=== PATIENT | male | born 1995 | race Two or more races ===

== ENCOUNTER 2024-05-02 12:49 | Day surgery (SDC) | payer OTHER, SELFPAY ==
[2024-05-02] VITALS (10 sets, daily range): BP systolic 117–151; BP diastolic 70–93; PULSE 68–107; RESP 16–20; TEMP 36.6–37.4; O2SAT 96–100; BMI 27.3; BMI 28.3
--- NOTE | 2024-05-02 13:01 | XR_ITS ---
Examination: CT abdomen with intravenous contrast CT pelvis with intravenous contrast 2-D coronal reconstructions 2-D sagittal reconstructions Date and time of exam:April 02, 2024 1603 hours INDICATIONS: Onset right lower abdominal pain beginning this morning. CTDI: vol (mGy) 8.73 DLP: (mGycm) 572 Technique: Multiple axial sections of the abdomen and pelvis have been obtained. 64 slice high-resolution scanner used. 3 mm axial sections have been obtained, post intravenous injection 60 cc Isovue-370 2-D sagittal, coronal reconstructions obtained. Low dose protocols were performed. One or more of the following dose reduction techniques were used; automated exposure control, adjustment of the mA and/or KV according to patient size, use of iterative reconstruction technique. Findings: No focal liver or splenic lesions No gallstones No pancreatic or adrenal mass No renal or ureteral calculi, no hydronephrosis Aorta is normal in size and configuration Fluid-filled enlarged inflamed appendix below the cecum, axial images 152 through 161, coronal images 86 through 74 No pelvic abscess or localized perforation Bladder intact IMPRESSION: Acute appendicitis, no perforation or abscess noted
--- NOTE | 2024-05-02 13:23 | PD.EDABDPN ---
ED Abdominal Pain RME/HPI General Chief Complaint: Abdominal Pain Stated complaint: ABD PAIN/NAUSEA TODAY, CONSTIPATION x 1 WEEK Time seen by provider: 05/02/24 12:55 Arrival date/time: 05/02/24 12:49 Limitations: no limitations RME / HPI RME / HPI narrative: This section includes all my notes and documentations, including HPI, PE, MDM, Procedure Notes, and PLAN. Ankit Albarran MD HPI: 29 year old male with no stated medical history presents to the ED for complaint of sharp right lower quadrant pain beginning ~ 2 hours [employer]. Rating as severe. Accompanied by nausea. Patient additionally reports constipation x 1 week and passing only very little amount of gas throughout the day. Denies any history of similar pain. Denies fevers, chills, sweats, cough, shortness of breath, vomiting, or urinary symptoms. No known modifying/aggravating factors reported. No breakfast or lunch today. No other complaints. ROS: Gastrointestinal: negative except as documented in HPI. Genitourinary: negative except as documented in HPI. Musculoskeletal: negative except as documented in HPI. Skin: negative except as documented in HPI. Neurological: negative except as documented in HPI. Physical Exam: General: Alert and oriented. Appears to be in pain. Eyes: Conjunctivae and lids clear. ENT: No nasal congestion. Neck: Supple. Heart: RRR. Lungs: No respiratory distress. Good air movement. No rhonchi, wheezing, rales. Abdomen: Soft, RLQ tenderness. Decreased bowel sounds. No distension. No rebound or guarding. Skin: Warm and dry. Neuro: Alert and oriented X 3. I reviewed all diagnostic test results. My review of the abdominal CT report is appendicitis. Blood tests remarkable for WBC 14.9. At this point, diagnoses include appendicitis. Treatment here included Zofran and Toradol and Zosyn. Patient felt better. I discussed the case with our surgeon on-call, Dr. Coffman. About the presentation and exam and diagnostics and treatments here. And need of further care in the hospital. Will see the patient. Ankit Albarran MD Related Data Allergies Allergy/AdvReac Type Severity Reaction Status Date / Time No Known Allergies Allergy Verified 05/02/24 12:52 Review of Systems Review of Systems Systems Reviewed: All systems reviewed, normal except as documented Past Medical History Past Medical History CARDIAC: Negative Cardiac Disorders RESPIRATORY: Negative Asthma GENITOURINARY: Negative Renal Disease ENDOCRINE: Negative Diabetes Mellitus Type 2 HEMATOLOGIC: Negative Sickle Cell Disease Social History SMOKING STATUS: Never smoker ED Exam Narrative Physical exam: As noted in HPI General Limitations: Present no limitations Course Quality Measures none Orders Category Date Time Status CT Screening NOW Care 05/02/24 13:01 Active Consult to General Surgery Stat Cons 05/02/24 16:[address] abdomen pelvis w con Stat Exams 05/02/24 13:01 Completed Amylase Stat Lab 05/02/24 13:15 Completed CBC Stat Lab 05/02/24 13:15 Completed CMP [Comprehensive Metabolic Panel] Stat Lab 05/02/24 13:15 Completed Lipase Stat Lab 05/02/24 13:15 Completed Magnesium Stat Lab 05/02/24 13:15 Completed UA [Urinalysis] Stat Lab 05/02/24 13:01 Ordered Ketorolac Inj [Toradol Inj] Med 05/02/24 13:00 Discontinued 30 mg IVP X1 ONE Ondansetron Inj [Zofran Inj] Med 05/02/24 13:00 Discontinued 4 mg IV X1 ONE Piper/Tazo Inj [Zosyn Inj] 3.375 gm Med 05/02/24 16:42 Discontinued Sodium Chloride 0.9% (P) [Ns 0.9% (P)] 50 ml IV X1 Vital Signs Vital signs: Vital Signs Temperature 99.4 F 05/02/24 13:00 Pulse Rate 107 H 05/02/24 13:00 Respiratory Rate 18 05/02/24 13:00 Blood Pressure 127/84 05/02/24 13:00 Pulse Oximetry (%) 98 05/02/24 13:00 Oxygen Delivery Method Room Air 05/02/24 13:00 Pulse ox is 98% on room air which is adequate. Abdominal Pain MDM MDM Narrative MDM Narrative:: Argelia Wan am scribing for and in the presence of Dr. Albarran. Patient data External records reviewed:: [facility] previous records (I reviewed ED visit on 03/18/2024) Clinical information provided by:: patient Social determinants that could affect healthcare access:: none Patient has the following chronic illnesses:: None How is presenting disease/condition affected by chronic disease/condition?: no chronic disease Evaluation data The following diagnostics were reviewed and interpreted by me:: lab results and radiology exam(s) Lab and/or radiology exams considered but not ordered:: None Interpretation Summary: Ordering Physician: Ankit Albarran MD Date of Service: 05/02/24 Procedure(s): CT abdomen pelvis w con Accession Number(s): [id number] cc: Ankit Albarran MD; Orlin Mares MD; Dell Fitzgerald MD~ Examination: CT abdomen with intravenous contrast CT pelvis with intravenous contrast 2-D coronal reconstructions 2-D sagittal reconstructions Date and time of exam:April 02, 2024 1603 hours INDICATIONS: Onset right lower abdominal pain beginning this morning. CTDI: vol (mGy) 8.73 DLP: (mGycm) 572 Technique: Multiple axial sections of the abdomen and pelvis have been obtained. 64 slice high-resolution scanner used. 3 mm axial sections have been obtained, post intravenous injection 60 cc Isovue-370 2-D sagittal, coronal reconstructions obtained. Low dose protocols were performed. One or more of the following dose reduction techniques were used; automated exposure control, adjustment of the mA and/or KV according to patient size, use of iterative reconstruction technique. Findings: No focal liver or splenic lesions No gallstones No pancreatic or adrenal mass No renal or ureteral calculi, no hydronephrosis Aorta is normal in size and configuration Fluid-filled enlarged inflamed appendix below the cecum, axial images 152 through 161, coronal images 86 through 74 No pelvic abscess or localized perforation Bladder intact IMPRESSION: Acute appendicitis, no perforation or abscess noted Dictated By: Orlin Mares MD Signed By: <Electronically signed by Orlin Mares MD in OV> 05/02/24 1639 Medications / Prescriptions Medications or Prescriptions considered but not ordered:: None Medication administrations:: Medication Administration History Discontinued Medications Piperacillin Sod/Tazobactam (Sod 3.375 gm/ Sodium Chloride) 50 mls @ 100 mls/hr IV X1 ONE Stop: 05/02/24 17:11 Last Admin: 05/02/24 16:55 Dose: 100 mls/hr Documented By: Ketorolac Tromethamine (Ketorolac Inj 30 Mg/Ml Vial) 30 mg IVP X1 ONE Stop: 05/02/24 13:01 Last Admin: 05/02/24 13:46 Dose: 30 mg Documented By: Ondansetron HCl (Ondansetron Inj 2 Mg/Ml Inj 2 Ml) 4 mg IV X1 ONE; Protocol Stop: 05/02/24 13:01 Last Admin: 05/02/24 13:47 Dose: 4 mg Documented By: Mckennavania and Toradol and Zosyn Consultations Consultation(s) initiated? (list below): Yes Consultation #1 (Physician, Specialty, Details): I spoke with surgeon Dr. Coffman. Discussed patients PMHx, HPI, ED course, exam findings, labs, and radiology results. Will see the patient. Time: 16:44 Diagnosis Differential diagnosis abdominal pain: abdominal pain, acute appendicitis, calculus of kidney, constipation, diverticulitis, gastroenteritis and small bowel obstruction Most likely diagnosis given after review of the tests above:: Appendicitis Admission Indicated Admission indicated?: indicated Explain why admission is indicated or not indicated:: Appendicitis Admission Request Was there a request for admission?: Yes Admission Attestation Admission request attestation: Discussed case with [] from Hospitalist service regarding admission. Discussed patients ED course, exam findings, labs, and radiology results. The Hospitalist [agrees,declines] to accept the patient for admission. Disposition Plan Disposition Plan: Admit Discharge Plan Prescriptions/Referrals Referrals: Dell Fitzgerald MD [Primary Care Provider] - In 1 week Problem List Clinical Impression: Abdominal pain Patient/Caregiver Discharge Instructions Print Language: Polish
[2024-05-02 13:24] LABS: Basophils % (Auto) 0 % (0-2.5); Eosinophils % (Auto) 0 % (0-10); Hematocrit 42.8 % (41.0-53.0); Immature Granulocytes % (Auto) 0 % (0-0); Immature Granulocytes Auto 0.06 Thou/mm3 (0.00-0.00); Lymphocytes % (Auto) 7 % (10-50); Mean Corpuscular Hemoglobin 30.5 pg (25.0-35.0); Mean Corpuscular Volume 87 fL (80-100); Monocytes # (Auto) 0.5 Thou/mm3 (0.0-0.8); Monocytes % (Auto) 3 % (0-12); Neutrophils # (Auto) 13.3 Thou/mm3 (1.8-7.7); Neutrophils % (Auto) 90 % (37-80); Nucleated Red Blood Cell % 0 /100 WBC (0); Platelet Count 143 Thou/mm3 (140-440); RDW Standard Deviation 40.8 fL (35.1-43.9); Red Blood Count 4.91 Miln/mm3 (4.50-5.90); White Blood Count 14.9 Thou/mm3 (3.8-10.6)
[2024-05-02] MEDS: KETOROLAC INJ 30 MG/ML VIAL IVP (13:46)
[2024-05-02] MEDS: ONDANSETRON INJ 2 MG/ML INJ 2 ML 4 MG IV (13:47)
[2024-05-02 13:51] LABS: Alanine Aminotransferase 28 U/L (10-49); Albumin, Serum 4.6 gm/dL (3.5-5.0); Albumin/Globulin Ratio 1.5 (1.2-2.2); Alkaline Phosphatase 57 U/L (46-116); Amylase 62 U/L (30-118); Anion Gap 10 (7-16); BUN/Creatinine Ratio 11 Ratio (12-20); Bilirubin,Total 0.7 mg/dL (0.3-1.2); Blood Urea Nitrogen 9 mg/dL (9-23); Calcium 9.4 mg/dL (8.3-10.6); Calcium (Corrected) 9.4 mg/dL (8.5-10.1); Carbon Dioxide 23.9 mMol/L (20.0-31.0); Chloride 103 mMol/L (98-107); Creatinine (Component) 0.8 mg/dL (0.6-1.3); Estimated Creatinine Clearance 130.6 mL/min (>60); Glucose 107 mg/dL (74-106); Lipase 51 U/L (12-53); Magnesium 1.7 mg/dL (1.6-2.6); Osmolality,Calculated 272 (275-295); Potassium 3.8 mMol/L (3.4-5.1); Sodium 137 mMol/L (136-145); Total Protein 7.6 gm/dL (5.7-8.2); eGFR > 60 See Note
[2024-05-02 14:11] LABS: Aspartate Amino Transferase 12 U/L (0-34)
[2024-05-02] MEDS: PIPER/TAZO INJ 3.375 GM in SODIUM CHLORIDE 0.9% (P) 50 ML IV (16:55)
--- NOTE | 2024-05-02 20:52 | PC.NURSE ---
Pt in [facility] was here to see pt. Conscent signed. Pt undressed for surg. Report given to ANIMAL GROOMER. pt leaving now for OR.
--- NOTE | 2024-05-02 20:52 | PD.SURHP ---
[facility] Date of Admission 05/02/2024 Chief Complaint Chief Complaint: Right lower quadrant abdominal pain with nausea and vomiting HPI 29-year-old male without significant past medical history presented to the emergency department with acute onset of abdominal pain. His pain started earlier today in the epigastric area. The pain was initially intermittent. His pain then became persistent, progressively worse and localized over right lower quadrant. He has had nausea and vomiting, but denies fever, chills, diarrhea or dysuria. He denies having similar symptoms in the past with no recent history of trauma. Review of Systems Constitutional Constitutional: Denies chills and Denies fever(s) Cardiovascular Cardiovascular: Denies chest pain Respiratory Respiratory: Reports cough Gastrointestinal Gastrointestinal: Reports abdominal pain, Reports nausea and Reports vomiting Genitourinary Genitourinary: Denies difficulty urinating Hematologic/Lymphatic Hematologic/Lymphatic: Denies easy bleeding and Denies easy bruising Past Medical History Surgical History OTHER SURGICAL HX: No surgeries in the past Social History SMOKING STATUS: Never smoker SUBSTANCE USE: does not use ALCOHOL: Never Meds Home Medications and Allergies Allergies Allergy/AdvReac Type Severity Reaction Status Date / Time No Known Allergies Allergy Verified 05/02/24 12:52 Exam Vital Signs Temp Pulse Resp BP Pulse Ox O2 Del Method 98.8 F 86 18 117/70 99 Room Air 05/02/24 19:13 05/02/24 19:13 05/02/24 19:13 05/02/24 19:13 05/02/24 19:13 05/02/24 19:13 Constitutional Constitutional: no acute distress Routine Respiratory Exam Respiratory: Present CTA bilaterally Routine Cardiovascular Exam Cardiovascular: Present RRR Routine Abdominal Exam Abdominal: Present soft, normoactive bowel sounds and tenderness (Right lower quadrant tenderness to palpation with guarding, no rebound tenderness or peritonitis at this time); Absent distended Results Results: Laboratory Laboratory results: results reviewed Results: Imaging CT scan - abdomen: report reviewed and image reviewed CT scan - pelvis: report reviewed and image reviewed Assessment & Plan Problem List (1) Acute appendicitis: Qualifiers: Acute appendicitis type: unspecified acute appendicitis type Qualified Code(s): K35.80 - Unspecified acute appendicitis Status: Acute Plan Keep n.p.o. with IV fluids and IV antibiotics and plan for laparoscopic possible open appendectomy. Risks include but not limited to infection, bleeding, injury to bowel, bladder, surround neurovascular structures, abdominal sepsis and or abdominal abscess, need for further procedure and or operation discussed with the patient. Benefits and alternatives explained to him, all his questions answered, he agreed and consented to proceed with the operation. Quality Measures Quality Measures none
--- NOTE | 2024-05-02 20:56 | ESOP_ITS ---
Date of Procedure 05/02/24 Pre Op Diagnosis Acute appendicitis Post Op Diagnosis Acute appendicitis Procedure Laparoscopic appendectomy Findings Inflamed and hyperemic appendix without perforation Procedure Description Patient was brought into the operating room in supine position. After administration of general endotracheal anesthesia, abdomen was prepped and draped in standard surgical manner. A Veress needle was inserted through the umbilicus and pneumoperitoneum was obtained up to 15 mmHg. The Veress needle was removed and a 5 mm umbilical incision was made. A 5 mm trocar was placed and laparoscopic camera was inserted. Under direct visualization a laparoscopic camera a 5 mm trocar placed in suprapubic region and a 10 mm trocar placed in left lower quadrant. The abdomen was inspected, the cecum was identified and followed until the appendix was identified. The appendix was noted to be inflamed and hyperemic without perforation. A window was created between the appendix and mesoappendix and the appendix was divided near the appendix and cecal junction with blue Endo DEYSI stapling device. The mesoappendix was divided with alberto Endo DEYSI stapling device. The appendix was placed inside an Endo Catch and removed from the abdomen utilizing left lower quadrant trocar site. Abdomen and pelvis copiously and thoroughly washed and irrigated, all the fluids were suctioned and the suctioned fluid returned clear. Hemostasis was adequate and satisfactory, staple lines were intact without bleeding or any leakage. Lef t lower quadrant trocar sites fascial defect was closed with 0 Vicryl using Endo closure device. Instruments and trocars removed, pneumoperitoneum was evacuated and the incisions closed with 4-0 Monocryl subcuticular fashion. Instruments, needles and sponge counts were reported to be correct ??2. Patient tolerated the procedure well, was extubated, breathing spontaneously and without difficulty and was transferred to postanesthesia care in stable condition. Anesthesia GETA and local Pathology / specimen Other (Appendix) Estimated Blood Loss 5 Condition Stable Disposition PACU Surgeon Keri Coffman MD Surgical Staff Operation Date: 05/02/24 21:00 <No data on this case meets the specified criteria>
--- NOTE | 2024-05-02 22:15 | SUR.PHASEI ---
2143: pt arrived to PACU via gurney drowsy but arouses to verbal commands, breathing unlabored, dressing to abdomen with dermabond x 3 ports clean, dry, and intact, report from Jackson GAMA and Jairo ENTERTAINMENT PRODUCTION PROFESSIONAL 2199: pt tolerating oral fluids without difficulty swallowing or n/v 2214: pt awake, alert, able to follow commands, breathing unlabored, dressing to abdomen with dermabond x 3 ports clean, dry, and intact, mother at bedside, report called to Kareen GAMA, pt transferred to room at this time.
[2024-05-02] MEDS: KCL 20 mEq/L in D5-1/2NS 20 MEQ/1,000 ML BAG 100 MEQ IV (22:49)
[2024-05-02] MEDS: DOCUSATE SOD 100 MG CAPSULE PO (22:49)
[2024-05-03] VITALS: BP 175/72; PULSE 64; RESP 18; TEMP 36.6; O2SAT 99
[2024-05-03 04:00] VITALS: BP 117/71; PULSE 71; RESP 16; TEMP 36.9; O2SAT 97
[2024-05-03] MEDS: HYDROcodone/APAP 5/325 TABLET 1 TAB PO (06:51)
[2024-05-03 08:00] VITALS: BP 132/78; PULSE 70; RESP 17; TEMP 36.3; O2SAT 98
[2024-05-03] MEDS: DOCUSATE SOD 100 MG CAPSULE PO (08:09)
[2024-05-03] MEDS: bisacodyL 5 MG TABEC 10 MG PO (08:10)
[2024-05-03] MEDS: ONDANSETRON INJ 2 MG/ML INJ 2 ML 4 MG IV (08:11)
--- NOTE | 2024-05-03 10:56 | PC.SS ---
Patient admitted for accute appendicitis. Patient independent with ADL's. Surgery was yesterday. Mother is alt medical decision maker. D/c plan to return home. No needs.
--- NOTE | 2024-05-03 11:32 | PD.SURPROG ---
Documentation for date of: 05/03/24 Subjective Subjective Narrative: Patient is seen and examined. Pain is improving. He is voiding and ambulating without difficulty Exam Vital Signs Temp Pulse Resp BP Pulse Ox O2 Del Method O2 Flow Rate 97.4 F 70 17 132/78 H 98 Room Air 4 05/03/24 08:00 05/03/24 08:00 05/03/24 08:00 05/03/24 08:00 05/03/24 08:00 05/03/24 08:00 05/02/24 21:54 Constitutional Constitutional: no acute distress Routine Abdominal Exam Abdominal: Present soft, normoactive bowel sounds and tenderness (Mild left lower quadrant incisional tenderness. Incisions are clean, dry and intact); Absent distended Assessment & Plan Assessment Additional comments: Postop day #1 status post laparoscopic appendectomy Plan Discharge home today Procedures Procedures Laparoscopic appendectomy
[2024-05-03 12:00] VITALS: BP 128/72; PULSE 76; RESP 17; TEMP 36.2; O2SAT 98
--- NOTE | 2024-05-03 13:12 | PC.NURSE ---
Patient was discharged home independently. Educational instructions and handout given to patient and he verbalized understanding. IV was removed.
== END 2024-05-03 12:46 | disposition home or self-care (01) ==
LOC: SERX 18:44 → S2EX 18:50 → S3SX 05-03 11:32
PROVIDERS: Emergency Provider Emergency Medicine; PCP Family Medicine; Referring Provider Surgery; Visit Provider Surgery
PROC: 0DTJ4ZZ Resection of Appendix, Percutaneous Endoscopic Approach (ICD-10-PCS; CPT 44970; principal; 2024-05-02 21:00)
DX: K35.80 Unspecified acute appendicitis (principal); K59.00 Constipation, unspecified
CPT/HCPCS: 44970; 36415; 74177; 80053; 81001; 82150; 83690; 83735; 85025; 96365; 99285; A4217; A4649; J0694; J1100; J1885; J2250; J2405; J2543; J2704; J3010; J3480; J3490; J7050; Q9967; A9270

== ENCOUNTER → 2024-07-13 | Outpatient (BNVA) | payer OTHER, SELFPAY | END | disposition home or self-care (01) | PROVIDERS: Visit Provider Urology | DX: N48.1 Balanitis (principal); N40.0 Benign prostatic hyperplasia without lower urinary tract symptoms; N50.3 Cyst of epididymis; Z87.440 Personal history of urinary (tract) infections; E66.9 Obesity, unspecified; Z68.31 Body mass index [BMI] 31.0-31.9, adult | CPT/HCPCS: 81003; 99212; G0463 ==

== ENCOUNTER → 2024-11-20 | Outpatient (CLI) | payer OTHER, SELFPAY ==
--- NOTE | 2024-11-20 14:21 | XR_ITS ---
Examination:Right hip AP, lateral, AP pelvis 3 views Technique: Hip AP lateral, AP pelvis, 3 views Exam date and time:November 20, 2024 1436 hours INDICATIONS: Right hip pain 2 months FINDINGS: Mild to moderate narrowing right and left hip joints No right or left hip fracture or dislocation Bones the pelvis intact IMPRESSION: Mild to moderate narrowing right and left hip joints.
== END | disposition home or self-care (01) ==
LOC: CDIM 14:12
PROVIDERS: PCP Family Medicine; Referring Provider Family Medicine; Visit Provider Family Medicine
DX: M25.851 Other specified joint disorders, right hip (principal)
CPT/HCPCS: 73502

== ENCOUNTER → 2025-02-05 | Outpatient (CLI) | payer OTHER, SELFPAY ==
--- NOTE | 2025-02-05 14:00 | XR_ITS ---
Examination: MRI brain without intravenous contrast. Date and time of exam: February 05, 2025 1428 hours INDICATIONS: Injury to the head 2018 with persistent headaches Technique: Multiple axial and sagittal images of the brain obtained. Siemens high-resolution 1.5 [place] short bore scanners utilized. Sagittal sections, T1-weighted, TR 500, TE 14, are performed. Axial sections proton-density and T2-weighted have been obtained. Inversion recovery axial images, TR 9, 260, TE 111, TI 2500. Diffusion weighted images, axial sections, TR 4800, TE 128, B value 1000 Axial sections, ADC map, TR 4800, TE 128 Findings: Enlargement of the sella turcica is not present. The optic chiasm and infundibular are not remarkable. Prepontine and interpeduncular cisterns are not enlarged. There is no localized enlargement of the medulla or viraj. Fourth ventricle and cerebellar tonsils appear normal in position. No subacute area of hemorrhage density is seen. Mass in the cerebellopontine angle region is not evident. Globes symmetrical. Orbital musculature including medial lateral rectus muscles do not exhibit abnormality. Diffusion-weighted images demonstrate no focus of restricted diffusion. Increased white matter signal not seen Mass effect upon the ventricular system is not identified. Impression: Negative for acute hemorrhage mass effect or midline shift No acute infarct No MR findings of demyelinating disease
== END | disposition home or self-care (01) ==
LOC: SMRI 13:45
PROVIDERS: PCP Family Medicine; Referring Provider Family Medicine; Visit Provider Family Medicine
DX: R51.9 Headache, unspecified (principal)
CPT/HCPCS: 70551

== ENCOUNTER → 2025-03-01 | Outpatient (CLI) | payer OTHER, SELFPAY ==
--- NOTE | 2025-03-01 | XR_ITS ---
Examination: Foot, right, 3 views Technique: AP, oblique, lateral views foot, 3 views Date and time of exam: March 01, 2025, 1214 hours INDICATIONS: Right foot pain beginning 1 year ago. FINDINGS: Minimal narrowing first metatarsophalangeal joint No fracture or dislocation 2 mm posterior bony calcaneal spur IMPRESSION: No fracture or significant arthritic change
== END | disposition home or self-care (01) ==
PROVIDERS: PCP Family Medicine; Referring Provider Family Medicine; Visit Provider Family Medicine
DX: M79.671 Pain in right foot (principal)
CPT/HCPCS: 73630

== ENCOUNTER → 2025-04-04 | Outpatient (BNVA) | payer OTHER, SELFPAY | END | disposition home or self-care (01) | PROVIDERS: PCP Family Medicine; Referring Provider Family Medicine; Visit Provider Urology | DX: N48.89 Other specified disorders of penis (principal) | CPT/HCPCS: 99212; G0463 ==